=== PATIENT | male | born 1975 | race Caucasian/White ===

== ENCOUNTER 2018-03-31 12:07 | Emergency (ER) | payer SELFPAY ==
[~2018-03-31 12:07] MED LIST: AA/A14DR7 OT; AMOX500C7 PO; AUG875 PO; CEP500; CEP500 PO; CEPH250C37 PO; CIT20 PO; CLO5 PO; CYC10 PO; EAR DROPS; HYDR-3074 PO; HYDR-3104 PO; HYDR-3140 PO; HYDR1TAB PO; HYOS0.1287 PO; IBU600 PO; IBUP600T22 PO; KET10 PO; LOR5 PO; LOR5/325 PO; MIR15 PO; NAPR125O4 PO; NAPROXEN PO; OMEP40CA45 PO; OND4 PO; ONDA4TAB PO; OXYC-865 PO; OXYC1TAB54; PANT40TA13 GT; PANT40TA13 PO; PEN250 PO; PER PO; PRO25 PO; SUCR1ORA13 PO; TRA50 PO; TRAM100T22 PO
--- NOTE | 2018-03-31 12:14 | ER Report ---
History and Physical Time Seen By MD: 12:14 HPI/ROS CHIEF COMPLAINT: Knee pain HISTORY OF PRESENT ILLNESS: This is a 43-year-old male who presents to the emergency department for knee pain. Patient states that he had a meniscus repair and anterior cruciate ligament repair to 3 years ago. The right knee has been doing "okay", since then today however when he stopped off at [employer] was going to walk home after summary dropped him off he stepped off the curb and fell down to the ground landing on his left shoulder. States he did hit his head however he denies loss of consciousness, no significant pain or concerns for age without a brain injury. Patient states that now his right knee is very painful although he did not really injure it today. No nausea or vomiting. No fevers or chills. No other concerns. No chest pain or shortness of breath. REVIEW OF SYSTEMS: Respiratory: No cough, no dyspnea. Cardiovascular: No chest pain, no palpitations. Gastrointestinal: No vomiting, no abdominal pain. Musculoskeletal: As above. Allergies: Coded Allergies: No Known Drug Allergies (Verified , 08/18/12) Home Meds Active Scripts Cyclobenzaprine Hcl (CYCLOBENZAPRINE HCL) 10 Mg Tablet, 5-10 MG PO TID PRN for MUSCLE SPASMS, #9 TAB 0 Refills Prov:MIKHAIL AKBAR RAMP JOCKEY-BC 03/31/18 Reported Medications Ibuprofen (IBUPROFEN) 600 Mg Tablet, 1 TAB PO Q6H PRN, #30 09/24/12 Clonazepam (KlonoPIN (OR EQUIV)) 0.5 Mg Tab, 0.5 MG PO DAILY PRN, #30 0 Refills Take one tablet by mouth as needed for Anxiety 06/27/12 Discontinued Reported Medications Hydrocodone Bit/Acetaminophen (HYDROCODON-ACETAMINOPHEN 5-325) 1 Each Tablet, 1 EACH PO Q4-6H, #30 09/26/12 Cephalexin (KEFLEX) 250 Mg Capsule, 500 MG PO TID, #30 MG TAKE TWO CAPSULE BY MOUTH EVERY SIX HOURS 09/26/12 Mirtazapine (REMERON (OR EQUIV)) 15 Mg Tab, 15 MG PO QHS, #15 1 Refill Take 1/2 to 1 tablet by mouth one hour prior to bedtime 06/27/12 Citalopram Hydrobromide (CeleXA (OR EQUIV)) 20 Mg Tab, 20 MG PO QAM, #30 1 Refill 06/27/12 Past Medical/Surgical History Patient has a past medical and surgical history of headaches, upper respiratory infections, hep C positive, liver disease, left shoulder injury, wears glasses, history of alcohol abuse, suicidal ideations, depression, right anterior cruciate ligament repair, meniscus repair. Reviewed Nurses Notes: Yes Hx Smoking: Yes Exposure to Second Hand Smoke?: Yes Hx Substance Use Disorder: No Hx Alcohol Use: No (dry 2 years) Constitutional Vital Sign - Last 24 Hours 03/31/18 03/31/18 03/31/18 03/31/18 12:07 12:18 12:19 12:22 Temp 98.0 Pulse ??? 118 125 Resp 18 B/P (MAP) 137/93 137/93 (108) Pulse Ox 91 92 O2 Delivery Room Air 03/31/18 03/31/18 03/31/18 03/31/18 12:37 12:52 13:00 13:07 Pulse 114 115 107 B/P (MAP) 127/82 (97) Pulse Ox 93 92 91 03/31/18 03/31/18 03/31/18 03/31/18 13:22 13:34 13:37 13:52 Pulse ??? 105 106 B/P (MAP) 118/96 (103) Pulse Ox 93 93 Physical Exam General Appearance: The patient is alert, has no immediate need for airway protection and no current signs of toxicity. Eyes: Pupils equal and round no injection. Respiratory: Chest is non tender, lungs are clear to auscultation. Cardiac: regular rate and rhythm Gastrointestinal: Abdomen is soft and non tender, no masses, bowel sounds normal. Musculoskeletal: Neck: Neck is supple and non tender. Extremities right legged raise. Due to the patient's pain I am unable to perform a valgus and varus maneuver on the right leg, no pain with valgus and varus of the left leg. Skin: No rashes or lesions. DIFFERENTIAL DIAGNOSIS: After history and physical exam differential diagnosis was considered for contusion, anterior cruciate ligament tear, PCL tear, meniscus tear, avulsion fracture. Medical Decision Making EKG/Imaging Imaging Location: [facility] [place] Patient: Tommy Pride : 1975 Visit/Account:[id number] Date of Sevice: 03/31/2018 Right knee, 3 views. HISTORY: Knee pain. COMPARISON: 09/24/2012. Surgical tunnels are present in the distal femur and proximal tibia. Metal anchors are present along the lateral aspect of the distal femoral tunnel. A metal staple is present in the anterior proximal tibia. Mild spurring and a small calcific density are present along the intercondylar tibial eminence, unchanged. Tiny marginal osteophytes and minimal joint space narrowing are present in the medial and patellofemoral compartments. No joint effusion. No acute fractures. The lateral compartment is otherwise unremarkable. IMPRESSION: Postsurgical changes following ACL repair. Mild osteoarthritis. Report Dictated By: Roger Mitchell MD at 03/31/2018 1:42 PM Report E-Signed By: Roger Mitchell MD at 03/31/2018 1:45 PM WSN:[id number] Location: [facility] [place] Patient: Tommy Pride : 1975 Visit/Account:[id number] Date of Sevice: 03/31/2018 Left shoulder, 4 views. HISTORY: Fall, pain. COMPARISON: 06/25/2012. Minimal joint space narrowing is present in the acromioclavicular joint. Mild spurring and minimal joint space narrowing are present along the inferior aspect of the glenoid. The acromiohumeral distance is normal. No acute fractures are identified. IMPRESSION: Mild acromioclavicular and glenohumeral osteoarthritis. Otherwise negative for acute bony abnormality. Report Dictated By: Roger Mitchell MD at 03/31/2018 1:40 PM Report E-Signed By: Roger Mitchell MD at 03/31/2018 1:41 PM WSN:[id number] ED Course/Re-evaluation ED Course The patient was admitted to a room. A history and physical were obtained. Differential diagnoses were considered. An x-ray of the right knee and left shoulder were negative for any acute bony abnormalities. The right knee hardware is in good repair. Patient was fitted with a knee brace to the right leg, he was also given crutches. I did tell him that he needs to follow up with [facility] with in 1 week for reevaluation as I was concerned there may be a meniscus injury. I also recommended following up with the [facility] and here he has a follow-up appointment scheduled with [facility]. Patient continued to ask for pain medications while in the ER, he was given 60 mg IM Norflex and 60 mg by mouth ibuprofen. I did send a prescription for Flexeril as he was having some muscle pain around the right knee and left shoulder. Patient was discharged home. Had no depressions or concerns at this time. 03/31/2018 2:13:52 pm I did check the [place] and [place] PDMP, patient had a prescription for clonazepam filled on March 28. Decision to Disposition Date: Mar 31, 2018 Decision to Disposition Time: 14:11 Depart Departure Latest Vital Signs Vital Signs Date Time Temp Pulse Resp B/P (MAP) Pulse Ox O2 Delivery O2 Flow Rate FiO2 03/31/18 13:52 106 93 03/31/18 13:34 118/96 (103) 03/31/18 12:18 98.0 18 Room Air Impression: Primary Impression: Right knee pain Additional Impression: Left shoulder pain Condition: Improved Disposition: HOME OR SELF-CARE Referrals: BRITNI HAWKINS MD (PCP) [facility] New Scripts Cyclobenzaprine Hcl (CYCLOBENZAPRINE HCL) 10 Mg Tablet 5-10 MG PO TID PRN for MUSCLE SPASMS, #9 TAB 0 Refills Prov: MIKHAIL AKBAR Rubén RAMP JOCKEY-BC 03/31/18 Patient Instructions: Knee Pain (ED), Shoulder Pain (ED) Additional Instructions: There were no concerning findings on your Xrays today. I am worried that you could have a meniscus injury to the right knee, so please follow up with [facility] within 1 week for reevaluation. Please follow up with the [facility] and [facility] within one week. Take the flexeril for the muscle spasms and pain. You can take 600-800mg Ibuprofen every 8 hours as needed for pain. Alternate with 500-1000mg of Tylenol if needed for additional pain relief. Drink plenty of water. Get plenty of rest. Keep the knee brace on for comfort. Return to the ED for any other concerns or worsening symptoms. Problem Qualifiers Primary Impression: Right knee pain Chronicity: unspecified Qualified Codes: M25.561 - Pain in right knee Additional Impression: Left shoulder pain Chronicity: acute Qualified Codes: M25.512 - Pain in left shoulder MIKHAIL AKBAR-JENNIE Mar 31, 2018 12:14
[2018-03-31] MEDS ORDERED: IBUPROFEN 600 MG TAB PO ONE (12:45)
[2018-03-31] MEDS ORDERED: ORPHENADRINE 60MG/2ML INJ IM ONE (12:45)
[2018-03-31] MEDS ORDERED: ONDANSETRON 4 MG ODT TABDP SL ONE (13:05)
[2018-03-31 13:34] VITALS: BP 118/96
--- NOTE | 2018-03-31 13:46 | RADIOLOGY IMAGING REPORT ---
FACILITY: [facility] PATIENT NAME: Tommy Pride : 1975 MR: [id number] V: [id number] EXAM DATE: ORDERING PHYSICIAN: MIKHAIL AKBAR TECHNOLOGIST: Location: [facility] [place] Patient: Tommy Pride : 1975 Visit/Account:[id number] Date of Sevice: 03/31/2018 Left shoulder, 4 views. HISTORY: Fall, pain. COMPARISON: 06/25/2012. Minimal joint space narrowing is present in the acromioclavicular joint. Mild spurring and minimal masood int space narrowing are present along the inferior aspect of the glenoid. The acromiohumeral distance is normal. No acute fractures are identified. IMPRESSION: Mild acromioclavicular and glenohumeral osteoarthritis. Otherwise negative for acute bony abnormality. Report Dictated By: Roger Mitchell MD at 03/31/2018 1:40 PM Report E-Signed By: Roger Mitchell MD at 03/31/2018 1:41 PM WSN:[id number]
--- NOTE | 2018-03-31 13:49 | RADIOLOGY IMAGING REPORT ---
FACILITY: [facility] PATIENT NAME: Tommy Pride : 1975 MR: [id number] V: [id number] EXAM DATE: ORDERING PHYSICIAN: MIKHAIL AKBAR TECHNOLOGIST: Location: [facility] Patient: Tommy Pride : 1975 Visit/Account:[id number] Date of Sevice: 03/31/2018 Right knee, 3 views. HISTORY: Knee pain. COMPARISON: 09/24/2012. Surgical tunnels are present in the distal femur and proximal tibia. Metal anchors are present along the lateral aspect of the distal femoral tunnel. A metal staple is present in the anterior proximal t ibia. Mild spurring and a small calcific density are present along the intercondylar tibial eminence, unchanged. Tiny marginal osteophytes and minimal joint space narrowing are present in the medial and patellofemoral compartments. No joint effusion. No acute fractures. The lateral compartment is other polanco unremarkable. IMPRESSION: Postsurgical changes following ACL repair. Mild osteoarthritis. Report Dictated By: Roger Mitchell MD at 03/31/2018 1:42 PM Report E-Signed By: Roger Mitchell MD at 03/31/2018 1:45 PM WSN:[id number]
[2018-03-31] MEDS ORDERED: CYCL10TA29 PO (14:05)
== END 2018-03-31 14:20 | disposition home or self-care (01) ==
LOC: ER 12:21
DX: M25.561 Pain in right knee (principal); M25.512 Pain in left shoulder; W18.30XA Fall on same level, unspecified, initial encounter
CPT/HCPCS: 73030; 73562; 96372; 99284; J2360; L1830; S0119